=== PATIENT | male | born 1960 | race Caucasian/White ===

== ENCOUNTER 2022-08-03 12:28 | Outpatient (CLI) | payer BC, SELFPAY | END 2022-08-03 12:29 | disposition home or self-care (01) | PROVIDERS: Visit Provider Internal Medicine | DX: I51.9 Heart disease, unspecified (principal); I51.7 Cardiomegaly; I35.1 Nonrheumatic aortic (valve) insufficiency; I34.0 Nonrheumatic mitral (valve) insufficiency; E78.5 Hyperlipidemia, unspecified | CPT/HCPCS: 93306 ==

== ENCOUNTER 2023-08-27 13:42 | Outpatient (CLI) | payer BC, SELFPAY ==
[2023-08-27] MEDS: SODIUM CHLORIDE 0.9 % (FLUSH) 10 ML SYRINGE IVF (15:00)
[2023-08-27] MEDS: PERFLUTREN LIPID MICROSPHERES 2 ML VIAL IV (15:00)
--- NOTE | 2023-08-27 15:10 | PC.NURSE ---
20G IV placed in left hand. Definity given per [employer] instrution. IV was then removed intact.
== END 2023-08-27 13:43 | disposition home or self-care (01) ==
PROVIDERS: Visit Provider Internal Medicine
DX: I50.9 Heart failure, unspecified (principal); I51.7 Cardiomegaly; I35.1 Nonrheumatic aortic (valve) insufficiency
CPT/HCPCS: 93306; Q9957